=== PATIENT | female | born 1985 | race Two or more races ===

== ENCOUNTER 2018-04-23 10:03 | Emergency (ER) | payer OTHER ==
[2018-04-23 10:11] VITALS: BMI 23.8
[2018-04-23] MEDS ORDERED: Sodium Chloride 0.9% 1,000 ML IV SCH (10:45)
[2018-04-23 11:28] LABS: BASO # 0.1 K/uL (0.0-0.2); BASO % 0.8 % (0.0-2.0); EOS # 0.1 K/uL (0.0-0.7); EOS % 1.6 % (0.0-4.0); HEMOGLOBIN 11.3 g/dL (12.0-16.0); LYMPH # 1.4 K/uL (1.0-4.3); LYMPH % 20.7 % (20.0-40.0); MEAN CELL VOLUME 84.2 fl (81.0-99.0); MEAN CORPUSCULAR HEMOGLOBIN 29.2 pg (27.0-31.0); MEAN CORPUSCULAR HGB CONC 34.7 g/dL (33.0-37.0); MEAN PLATELET VOLUME 8.2 fl (7.2-11.7); MONO # 0.4 K/uL (0.0-0.8); MONO % 5.9 % (0.0-10.0); NEUT # 4.7 K/uL (1.8-7.0); RBC 3.86 Mil/uL (3.80-5.20); RED CELL DISTRIBUTION WIDTH 13.5 % (11.5-14.5); WHITE BLOOD COUNT 6.6 K/uL (4.8-10.8)
[2018-04-23 11:34] LABS: ALB/GLOB RATIO 1.2 (1.0-2.1); ALBUMIN 3.2 g/dL (3.5-5.0); ALT/SGPT 24 U/L (9-52); AST/SGOT 13 U/L (14-36); BLOOD UREA NITROGEN 10 mg/dl (7-17); CALCIUM 8.5 mg/dL (8.4-10.2); GFR AFRICAN-AMERICAN > 60; GFR NON-AFRICAN AMERICAN > 60; HDL CHOLESTEROL 60 MG/DL (30-70)
[2018-04-23 11:36] LABS: PROTHROMBIN TIME 11.1 Seconds (9.8-13.1)
[2018-04-23 11:38] LABS: PARTIAL THROMBOPLASTIN TIME 30.8 Seconds (25.6-37.1)
[2018-04-23 11:44] LABS: LDL CHOLESTEROL 90 mg/dL (0-129)
[2018-04-23 12:05] VITALS: TEMP 97.6; O2SAT 98
--- NOTE | 2018-04-23 13:09 | ED PDOC ---
HPI:STROKE - Time Time: 10:20 - Historian Historian: Patient - Chief Complaint Chief Complaint: Numbness, Mental status change, Confusion - Onset Date: 04/23/18 Time: 09:00 - Timing Timing: Resolved - Location Location: Difficult to localize Locate right:: Upper extremity - Radiation Radiation: Face - Severity of pain Maximum severity:: Mild Severity Current: None - Quality of Pain Quality of Pain:: Same as Prev Episodes - Exacerbated by Exacerbated by:: Nothing - Relieved by Relieved by:: Nothing - TPA Positive for Contraindication: Yes Reason tPA is not being Administered: symptoms resolved, - Notes: Notes:: 33yo female currently 16wk c/o sudden onset R headache associated with right arm numbness and speech difficulty- states became "confused" and had trouble finishing conference call at work. Also noted some blurry vision. Symptoms lasted about 20min and then resolved rapidly, asymptomatic on arrival here. States had similar episode in february for which she spoke to her OB and told was possible ocular migrane. Had no workup at that time. 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 Sees OB Dr Squires at [place] no issues thus far in . Denies abd pain or bleeding over last several days. NIHSS Stroke Scale - Date/Time Evaluation Performed Date Performed: 04/23/18 Time Performed: 10:25 When Was NIHSS Performed: Baseline - How Severe is the Stroke Level of Consciousness: 0=Alert LOC to Questions: 0=Both comments correct LOC to commands: 0=Obeys both correctly Best Gaze: 0=Normal Visual: 0=No visual loss Facial: 0=Normal Motor Arm - Left: 0=No drift Motor Arm - Right: 0=No drift Motor Leg - Left: 0=No drift Motor Leg - Right: 0=No drift Limb Ataxia: 0=Absent Sensory: 0=Normal Best Language: 0=No aphasia Dysarthia: 0=Normal articulation Extinction & Inattention (Neglect): 0=Normal, no object Score: 0 rTPA Inclusion/Exclusion - Refusal of Treatment Patient Refused Treatment: No - Inclusion Criteria for Altepase Patient is 18 years or Older: Yes The Clinical Diagnosis of Ischemic Stroke That is Causing a Potentially Disabling Neurological Deficit: No Time of Onset is Well Established to be Less Than 270 Minute Before Treatment Would Begin: No Risk/Benefit Discussed With Patient/Family Member Present: No - Exclusion Criteria for Altepase Uncontrolled Hypertension at Time of Treatment (Systolic BP above 185 or Diastolic BP above 110 mmHg): No - Warning to TPA With Conditions Following Conditions Weighed Against Anticipated Benefit: Yes Condition: Stroke Serevity Too Mild, Rapid Improvement, Past Medical History Reviewed: Historical Data, Nursing Documentation, Vital Signs Vital Signs: Last Vital Signs Temp 97.6 F 04/23/18 12:05 Pulse 75 04/23/18 12:05 Resp 18 04/23/18 12:05 BP 100/60 04/23/18 12:05 Pulse Ox 98 04/23/18 12:05 - Medical History Other PMH: "immune disease" ?prior TIA 2007 - Surgical History Surgical History: Appendectomy - Family History Family History: States: Unknown Family Hx - Living Arrangements Living Arrangements: With Family - Social History Current smoker - smoking cessation education provided: No Alcohol: None - Allergies Allergies/Adverse Reactions: Allergies Allergy/AdvReac Type Severity Reaction Status Date / Time No Known Allergies Allergy Verified 04/23/18 10:12 Review of Systems ROS Statement: Except As Marked, All Systems Reviewed And Found Negative Constitutional: Negative for: Fever ENT: Negative for: Ear Discharge, Nose Discharge Cardiovascular: Negative for: Chest Pain Respiratory: Negative for: Shortness of Breath Gastrointestinal: Negative for: Abdominal Pain Genitourinary Female: Negative for: Frequency Musculoskeletal: Negative for: Neck Pain Skin: Negative for: Rash Neurological: Positive for: Weakness, Numbness, Change in Speech, Confusion, Altered Mental Status, Headache, Dizziness. Negative for: Incoordination Psych: Negative for: Depression Physical Exam - Reviewed Nursing Documentation Reviewed: Yes Vital Signs Reviewed: Yes - Physical Exam Appears: Positive for: Well, Non-toxic, No Acute Distress Head Exam: Positive for: ATRAUMATIC, NORMAL INSPECTION, NORMOCEPHALIC Skin: Positive for: Normal Color, Warm, DRY Eye Exam: Positive for: EOMI, Normal appearance, PERRL ENT: Positive for: Normal ENT Inspection Neck: Positive for: Normal, Painless ROM Cardiovascular/Chest: Positive for: Regular Rate, Rhythm Respiratory: Positive for: CNT, Normal Breath Sounds Gastrointestinal/Abdominal: Positive for: Normal Exam, Soft Back: Positive for: Normal Inspection Extremity: Positive for: Normal ROM Neurologic/Psych: Positive for: Alert, sports management internship II-XII (intact), Oriented, Mood/ Affect (good insight), Other (strength 5/5 all ext, alert oriented with no dysphagia and fluent speech). Negative for: Motor/Sensory Deficits, Aphasia, Facial Droop - Laboratory Results Result Diagrams: 04/23/18 11:15 04/23/18 11:15 - ECG O2 Sat by Pulse Oximetry: 98 Medical Decision Making Medical Decision Making: Discussed risks/benefits of CT imaging, patient preferred to avoid. Labs and MRI to be obtained Dr Nichols neurology consumer analyst evaluate patient in ED labs reviewed and clinically unremarkable HgbA1C neg lipids unremarkable Waste Water Worker 0.5 mild hypoalbumenemia unclear significance Accession No. : [id number] Patient Name / ID : KRIS HUERTA / [id number] Exam Date : 04/23/2018 11:21:35 ( Approved ) Study Comment : Sex / Age : F / 33Y Creator : Pio Ortiz MD Dictator : Pio Ortiz MD Hook Up : Physical Science Teacher : Pio Ortiz MD Approver2 : Report Date : 04/23/2018 13:19:38 My Comment : Date of service: 04/23/2018 PROCEDURE: MRI BRAIN WITHOUT CONTRAST HISTORY: R headache and R arm weakness COMPARISON: None available. TECHNIQUE: Multiplanar, multisequence MR images of the brain were obtained without intravenous contrast enhancement. FINDINGS: HEMORRHAGE: None DWI: No evidence of an acute or early subacute infarction. BRAIN PARENCHYMA: Intrinsic signal throughout the purdy and white matter structures above below the tentorium appears within normal limits including the brainstem. There is no mass effect, parenchymal edema or loss of the corticomedullary differentiation. Midline brain anatomy appears within normal limits including the corpus callosum, brainstem and craniocervical junction. There is no suspicious extra-axial fluid collection identified. VENTRICLES: Unremarkable. No hydrocephalus. CRANIUM: Unremarkable. ORBITS: Grossly unremarkable. PARANASAL SINUSES/MASTOIDS: Clear VASCULAR SYSTEM: Skull base flow voids intact. OTHER FINDINGS: None. IMPRESSION: Unremarkable non contrast enhanced MRI of the brain. OB US obtained 17wk +FHR for maternal reassurance. explained not anomaly study. pt in ED 4hrs with no return of symptoms. wants to go home. offered hospitalization obs but prefers to followup w her care team outpt. cleared by Dr Nichols to go home, followup w her rheum and hematology next week Disposition - Clinical Impression Clinical Impression: Headache, Numbness - Patient ED Disposition Is Patient to be Admitted: No Counseled Patient/Family Regarding: Studies Performed, Diagnosis, Need For Followup - Disposition Referrals: Erendira Nichols MD [Medical Doctor] - Disposition: Routine/Home Disposition Time: 14:01 Condition: STABLE Additional Instructions: FOLLOWUP WITH YOUR DESIGN AND SALES CONSULTANT, JAVASCRIPT APPLICATION DEVELOPER AND NEUROLOGY REFERRALS ALSO PROVIDED. RETURN TO ER IMMEDIATELY FOR ANY PROGRESSIVE OR NEW/ RETURN OF SYMPTOMS. CONTINUE ASPIRIN PRESCRIBED BY YOUR OB OR RHEUMATOLOGY DOCTORS. Instructions: Headache, Adult, Paresthesias (DC) Forms: [employer] (Thai)
--- NOTE | 2018-04-23 13:21 | MRI ---
Date of service: 04/23/2018 PROCEDURE: MRI BRAIN WITHOUT CONTRAST HISTORY: R headache and R arm weakness COMPARISON: None available. TECHNIQUE: Multiplanar, multisequence MR images of the brain were obtained without intravenous contrast enhancement. FINDINGS: HEMORRHAGE: None DWI: No evidence of an acute or early subacute infarction. BRAIN PARENCHYMA: Intrinsic signal throughout the purdy and white matter structures above below the tentorium appears within normal limits including the brainstem. There is no mass effect, parenchymal edema or loss of the corticomedullary differentiation. Midline brain anatomy appears within normal limits including the corpus callosum, brainstem and craniocervical junction. There is no suspicious extra-axial fluid collection identified. VENTRICLES: Unremarkable. No hydrocephalus. CRANIUM: Unremarkable. ORBITS: Grossly unremarkable. PARANASAL SINUSES/MASTOIDS: Clear VASCULAR SYSTEM: Skull base flow voids intact. OTHER FINDINGS: None. IMPRESSION: Unremarkable non contrast enhanced MRI of the brain.
--- NOTE | 2018-04-23 13:57 | US ---
Date of service: 04/23/2018 PROCEDURE: Second trimester ultrasound HISTORY: well being 17wks preg, weakness COMPARISON: None available. TECHNIQUE: Standard protocol for this study/examination. FINDINGS: Breech presentation. Anterior Placenta. No evidence of abruption or previa Gestational age derived from LMP 16 weeks 2 days. VERONIKA 10/10/2018. Gestational age derived from the following biometric parameters 17 weeks. VERONIKA 10/01/2018 Biparietal diameter 3.78 cm Head circumference 13.25 cm Abdominal circumference 10.71 cm Femur length 2.37 cm Estimated weight 173 g Calculated cardiac rate 147 beats per min. Closed cervix measuring 6.19 cm IMPRESSION: Live intrauterine gestation. Gestational concordance documented.
[2018-04-23 14:11] VITALS: BP 126/74; PULSE 70; RESP 19
--- NOTE | 2018-04-23 22:33 | CARD ---
APPROVED REPORT Date of service: 04/23/2018 <Conclusion> Sinus bradycardia Otherwise normal ECG
== END 2018-04-23 14:11 | disposition home or self-care (01) ==
LOC: H.ER 10:03
DX: O99.355 Diseases of the nervous system complicating the puerperium (principal); O26.892 Other specified pregnancy related conditions, second trimester; R20.2 Paresthesia of skin; Z3A.17 17 weeks gestation of pregnancy; Z86.73 Personal history of transient ischemic attack (TIA), and cerebral infarction without residual deficits
CPT/HCPCS: 70551; 76815; 80053; 80061; 81025; 83036; 84484; 85025; 85610; 85730; 86850; 86900; 93005; 99285; J7030

== ENCOUNTER 2018-06-12 19:02 | Emergency (ER) | payer OTHER ==
[2018-06-12 19:47] VITALS: BMI 24.7
[2018-06-13 03:22] VITALS: BP 90/45; PULSE 63; O2SAT 99
== END 2018-06-12 20:25 | disposition home or self-care (01) ==
LOC: H.EROB2 19:02
DX: O36.8130 Decreased fetal movements, third trimester, not applicable or unspecified (principal); Z3A.23 23 weeks gestation of pregnancy; O09.92 Supervision of high risk pregnancy, unspecified, second trimester